=== PATIENT | male | born 1970 | race Caucasian/White ===

== ENCOUNTER 2019-02-11 15:50 | Inpatient (IN) | payer SELFPAY ==
[~2019-02-11] VITALS: Ht 157.5 cm; Wt 56.9 kg
[2019-02-11] MEDS ORDERED: SODIUM CHLORIDE 0.9% 1,000 ML IV ONE (16:14)
[2019-02-11] MEDS ORDERED: ONDANSETRON HCL 4MG/2ML INJ IV STA (16:14)
[2019-02-11] MEDS ORDERED: FOLIC ACID 1 MG, THIAMINE HCL 100 MG, MVI, ADULT NO.1 10 ML in DEXTROSE 5% WATER 1,000 ML IV ONE ×4 (16:15)
[2019-02-11 16:36] LABS: BASOPHILS % 1.2 % (0.0-2.0); HEMATOCRIT. 39.5 % (42.0-52.0); HEMOGLOBIN. 13.4 g/dL (14.0-18.0); LYMPHOCYTES % 11.5 % (20.0-50.0); MEAN CORPUSCULAR HEMOGLOBIN 33.2 pg (28.0-32.0); MEAN CORPUSCULAR VOLUME 98.2 fL (80.0-94.0); MEAN PLATELET VOLUME 6.6 fl (7.4-10.4); MONOCYTES % 4.6 % (2.0-8.0); NEUTROPHILS % 82.7 % (40.0-76.0); PLATELET 112 x1000/uL (130-400); RED BLOOD CELL COUNT 4.03 mill/uL (4.7-6.1); RED CELL DISTRIBUTION WIDTH 15.4 % (11.6-14.6)
[2019-02-11 16:37] LABS: CHLORIDE 98 mEq/L (98-107)
[2019-02-11] MEDS ORDERED: THIAMINE HCL 100 MG/1 ML 2ML VIAL ONE (16:40)
[2019-02-11 16:43] LABS: ETHANOL BLOOD 280 mg/dL
[2019-02-11] MEDS ORDERED: LORAZEPAM 2MG/ML CPJ IV ONE (17:45)
[2019-02-11 18:49] LABS: CLARITY URINE CLEAR (CLEAR); COLOR URINE YELLOW (YELLOW); KETONES URINE 3+ (NEGATIVE); LEUKOCYTE ESTERASE URINE NEGATIVE (NEGATIVE); NITRITE URINE NEGATIVE (NEGATIVE); OCCULT BLOOD URINE TRACE (NEGATIVE); PH URINE 5.5 (4.5-8.0); PROTEIN URINE 1+ (NEGATIVE); SPECIFIC GRAVITY URINE 1.019 (1.005-1.030); UROBILINOGEN URINE 0.2 E.U./dL (0.2-1.0)
[2019-02-11 20:30] VITALS: BP 129/84
[2019-02-11 23:00] VITALS: BP 129/84
[2019-02-12] VITALS: BP 117/74
[2019-02-12] MEDS ORDERED: ACETAMINOPHEN 325MG TABLET PO PRN (00:15)
[2019-02-12 04:00] VITALS: BP 114/79
[2019-02-12] MEDS: CHLORDIAZEPOXIDE 25MG CAPSULE PO SCH ×3 (05:13→21:57)
[2019-02-12 07:16] LABS: BASOPHILS % 0.7 % (0.0-2.0); EOSINOPHILS % 0.2 % (0.0-5.0); HEMOGLOBIN. 12.4 g/dL (14.0-18.0); LYMPHOCYTES % 11.4 % (20.0-50.0); MEAN CORPUSCULAR HEMOGLOBIN 33.7 pg (28.0-32.0); MEAN CORPUSCULAR VOLUME 94.9 fL (80.0-94.0); MEAN PLATELET VOLUME 7.1 fl (7.4-10.4); MONOCYTES % 10.9 % (2.0-8.0); NEUTROPHILS % 76.8 % (40.0-76.0); PLATELET 115 x1000/uL (130-400); RED BLOOD CELL COUNT 3.69 mill/uL (4.7-6.1); RED CELL DISTRIBUTION WIDTH 15.2 % (11.6-14.6)
[2019-02-12 08:00] VITALS: BP 129/77
[2019-02-12] MEDS: MULTIVITAMINS,THER W-MINERALS TABLET PO SCH (09:44)
[2019-02-12] MEDS: FOLIC ACID/VITAMIN B COMP W-C TABLET PO SCH (09:44)
[2019-02-12] MEDS ORDERED: MAGNESIUM/ALUMINUM HYDROXIDE/SIMETHICONE 30ML UDC PO PRN (10:15)
[2019-02-12] MEDS ORDERED: CLONIDINE 0.1MG TABLET PO PRN (10:15)
[2019-02-12] MEDS ORDERED: DOCUSATE SODIUM 100MG CAPSULE PO PRN (10:15)
[2019-02-12] MEDS ORDERED: LORAZEPAM 0.5MG TABLET PO PRN (10:15)
[2019-02-12 10:17] LABS: CHLORIDE 94 mEq/L (98-107)
[2019-02-12] MEDS ORDERED: LORAZEPAM 2MG/ML CPJ IV PRN (10:30)
[2019-02-12 10:45] LABS: *BARBITURATES SCREEN URINE NEGATIVE (NEGATIVE); *BENZODIAZEPINES SCREEN URINE NEGATIVE (NEGATIVE); *COCAINE SCREEN URINE NEGATIVE (NEGATIVE); CANNABINOID URINE SCREEN NEGATIVE (NEGATIVE); PHENCYCLIDINE URINE SCREEN NEGATIVE (NEGATIVE)
[2019-02-12 10:46] LABS: *AMPHETAMINES SCREEN URINE PRESUMTIVE POSITIVE (NEGATIVE); METHADONE URINE SCREEN NEGATIVE (NEGATIVE)
[2019-02-12 10:47] LABS: OPIATES URINE SCREEN NEGATIVE (NEGATIVE)
[2019-02-12 12:00] VITALS: BP 136/81
[2019-02-12] MEDS ORDERED: SODIUM CHLORIDE 0.9% 1,000 ML IV SCH (12:30)
[2019-02-12 13:23] LABS: AMYLASE 136 IU/L (25-115)
[2019-02-12] MEDS ORDERED: MAGNESIUM 1 G PREMIX 100 ML IV NR (14:00)
[2019-02-12] MEDS: SODIUM CHLORIDE 0.9% 1,000 ML IV SCH (14:25)
[2019-02-12] MEDS: ENOXAPARIN 40MG/0.4ML SYR SUBCUT SCH (14:26)
[2019-02-12] MEDS: PANTOPRAZOLE SODIUM 40 MG/VIAL IV SCH (14:26)
[2019-02-12 16:00] VITALS: BP 118/76
[2019-02-12 20:00] VITALS: BP 111/67
[2019-02-13] VITALS (7 sets, daily range): BP systolic 104–137; BP diastolic 60–92
[2019-02-13] MEDS: SODIUM CHLORIDE 0.9% 1,000 ML IV SCH ×2 (03:07→11:21)
[2019-02-13] MEDS: CHLORDIAZEPOXIDE 25MG CAPSULE PO SCH ×2 (05:00→15:13)
[2019-02-13 06:50] LABS: BASOPHILS % 0.7 % (0.0-2.0); EOSINOPHILS % 0.5 % (0.0-5.0); HEMATOCRIT. 38.9 % (42.0-52.0); HEMOGLOBIN. 13.5 g/dL (14.0-18.0); LYMPHOCYTES % 21.6 % (20.0-50.0); MEAN CORPUSCULAR HEMOGLOBIN 33.1 pg (28.0-32.0); MEAN CORPUSCULAR VOLUME 95.4 fL (80.0-94.0); MEAN PLATELET VOLUME 8.3 fl (7.4-10.4); NEUTROPHILS % 67.2 % (40.0-76.0); PLATELET 104 x1000/uL (130-400); RED BLOOD CELL COUNT 4.08 mill/uL (4.7-6.1); RED CELL DISTRIBUTION WIDTH 15.2 % (11.6-14.6)
[2019-02-13 06:51] LABS: CHLORIDE 99 mEq/L (98-107)
[2019-02-13 07:02] LABS: LDL CHOLESTEROL 114 mg/dL (5-100); PHOSPHORUS 2.3 mg/dL (2.5-4.9)
[2019-02-13 07:03] LABS: HDL CHOLESTEROL 83 mg/dL (40-59)
[2019-02-13 07:06] LABS: AMYLASE 126 IU/L (25-115)
[2019-02-13] MEDS: PANTOPRAZOLE SODIUM 40 MG/VIAL IV SCH (09:43)
[2019-02-13] MEDS: FOLIC ACID/VITAMIN B COMP W-C TABLET PO SCH (09:43)
[2019-02-13] MEDS: MULTIVITAMINS,THER W-MINERALS TABLET PO SCH (09:43)
[2019-02-13] MEDS: ENOXAPARIN 40MG/0.4ML SYR SUBCUT SCH (10:50)
== END 2019-02-13 16:10 | disposition home or self-care (01) | DRG 775 ==
LOC: ER 15:50 → 8WST 17:43 → EDBEDREQTM 17:46 → EDBEDREQ 17:46 → ENRESERV 19:40
PROVIDERS: ADMIT Family Medicine Adult Medicine; ATTEND Family Medicine Adult Medicine
DX: F10.239 Alcohol dependence with withdrawal, unspecified (principal); E78.5 Hyperlipidemia, unspecified; R74.0 Nonspecific elevation of levels of transaminase and lactic acid dehydrogenase [LDH]; I10 Essential (primary) hypertension; R26.2 Difficulty in walking, not elsewhere classified; Z59.0 Homelessness; Z87.891 Personal history of nicotine dependence; Z71.41 Alcohol abuse counseling and surveillance of alcoholic
CPT/HCPCS: 36415; 71045; 76700; 80048; 80061; 80305; 80320; 81003; 82150; 83735; 84100; 84443; 93005; 93306; 96365; 97162; 99285; C9113; J1650; J2405; J3411; J3475; J3490; J7030; J7070; G0480